=== PATIENT | male | born 1965 | race Caucasian/White ===

== ENCOUNTER 2024-10-15 16:16 | Inpatient (IN) | payer MEDICAID, OTHER ==
[~2024-10-15] VITALS: Ht 172.7 cm; Wt 76.2 kg
[2024-10-15 17:17] LABS: BASOPHILS % (AUTO) 0.3 % (0.0-2.0); EOSINOPHILS % (AUTO) 0.3 % (0.0-7.0); HEMATOCRIT 42.9 % (36.7-47.1); HEMOGLOBIN 14.1 g/dL (12.5-16.3); LYMPHOCYTES # (AUTO) 1.6 K/uL (0.8-4.8); LYMPHOCYTES % (AUTO) 19.6 % (20.5-51.5); MEAN CORPUSCULAR HEMOGLOBIN 31.4 uug (23.8-33.4); MEAN CORPUSCULAR HGB CONC 33 g/dL (32.5-36.3); MEAN CORPUSCULAR VOLUME 95.3 fL (73.0-96.2); MONOCYTES # (AUTO) 0.7 K/uL (0.1-1.30); MONOCYTES % (AUTO) 7.9 % (0.0-11.0); NEUTROPHILS % (AUTO) 71.9 % (38.5-71.5); PLATELET COUNT (AUTO) 263 K/uL (152-348); RED CELL DISTRIBUTION WIDTH 14.5 % (12.1-16.2); WHITE BLOOD COUNT (AUTO) 8.3 K/uL (3.6-10.2)
[2024-10-15 17:19] LABS: DIFFERENTIAL COMMENT 1
[2024-10-15 17:19] LABS: *BILIRUBIN,URIN NEGATIVE (NEGATIVE); *BLOOD, URINE NEGATIVE (NEGATIVE); *CLARITY,URINE CLEAR (CLEAR); *COLOR,URINE YELLOW (YELLOW); *KETONES,URINE 2+ (NEGATIVE); *PROTEIN,URINE NEGATIVE (NEGATIVE); *UROBILINOGEN,URINE 0.2 E.U./dl (NORMAL); LEUKOCYTE ESTERASE ,URINE NEGATIVE (NEGATIVE); NITRITE, URINE NEGATIVE (NEGATIVE); UGLUCOSE NEGATIVE (NEGATIVE)
[2024-10-15 17:20] LABS: RBC,URINE 0-3 /HPF (0-3); WBC,URINE 0-3 /HPF (0-3)
[2024-10-15 17:27] LABS: *AMPHETAMINE, URINE NEGATIVE (NEGATIVE); *BARBITURATE, URINE NEGATIVE (NEGATIVE); *BENZODIAZEPINE, URINE NEGATIVE (NEGATIVE); *CANNABINOID, URINE NEGATIVE (NEGATIVE); *COCCAINE, URINE NEGATIVE (NEGATIVE); *OPIATE, URINE NEGATIVE (NEGATIVE); *PHENCYCLIDINE SCREEN,URINE NEGATIVE (NEGATIVE); FENTANYL, URINE NEGATIVE (NEGATIVE)
[2024-10-15 17:29] LABS: ETHANOL < 3 MG/DL (0-10)
[2024-10-15 17:48] LABS: ALANINE AMINOTRANSFERASE 20 U/L (16-63); ALBUMIN 4.1 g/dL (3.4-5.0); ALKALINE PHOSPHATASE 58 U/L (50-136); ASPARTATE AMINOTRANSFERASE 11 U/L (15-37); BILIRUBIN,DIRECT 0.2 mg/dL (0.0-0.2); BILIRUBIN,TOTAL 0.8 mg/dL (0.2-1.0); CALCIUM 9.1 mg/dL (8.5-10.1); CARBON DIOXIDE 29 mmol/L (21-32); CREATININE 1.1 mg/dL (0.6-1.3); GLUCOSE 105 mg/dL (74-106); TOTAL PROTEIN, SERUM 6.9 g/dL (6.4-8.2); UREA NITROGEN, BLOOD 14 mg/dL (7-18)
[2024-10-15 18:19] LABS: CHLORIDE 103 mmol/L (98-107); POTASSIUM 4.2 mmol/L (3.5-5.1); SODIUM SERUM 142 mmol/L (136-145)
[2024-10-15] MEDS ORDERED: QUET200T31 PO (18:21)
[2024-10-15] MEDS ORDERED: DIVA-76 PO (18:21)
[2024-10-15] MEDS ORDERED: LAMO150T6 PO (18:21)
[2024-10-15] MEDS ORDERED: ARIP30TA21 PO (18:21)
[2024-10-15] MEDS ORDERED: MAG HYDROX/AL HYDROX/SIMETH 30 ML LIQUID UDC PO PRN (21:30)
[2024-10-15] MEDS ORDERED: ACETAMINOPHEN 325 MG TABLET PO PRN (21:30)
[2024-10-15] MEDS ORDERED: MAGNESIUM HYDROXIDE 30 ML LIQUID UDC PO PRN (21:30)
[2024-10-15] MEDS: BLOOD SUGAR DIAGNOSTIC 1 EACH STRIP VI ONE (22:25)
[2024-10-15 23:00] VITALS: BP 146/78; TEMP 98.2; O2SAT 96
[2024-10-16] MEDS: LORAZEPAM 1 MG TABLET PO PRN (00:01)
[2024-10-16] MEDS: ZOLPIDEM 5 MG TABLET PO PRN (02:59)
[2024-10-16 08:18] VITALS: BP 148/81; TEMP 98.5; O2SAT 98
[2024-10-16] MEDS: DIVALPROEX 250 MG TABLET.DR PO SCH (12:35)
[2024-10-16] MEDS: ESCITALOPRAM OXALATE 10 MG TABLET PO SCH (12:36)
[2024-10-16 16:46] VITALS: BP 135/86; TEMP 97.8; O2SAT 98
[2024-10-16 20:07] VITALS: BP 114/72; TEMP 97.9; O2SAT 97
[2024-10-16] MEDS: QUETIAPINE FUMARATE 25 MG TABLET PO SCH (20:39)
[2024-10-17 08:15] VITALS: BP 117/75; TEMP 98; O2SAT 98
[2024-10-17 15:16] VITALS: BP 120/75; TEMP 98; O2SAT 99
[2024-10-17 19:58] VITALS: BP 128/80; TEMP 98.2; O2SAT 95
[2024-10-17] MEDS: LORAZEPAM 1 MG TABLET PO PRN (21:05)
[2024-10-17] MEDS: ARIPIPRAZOLE 10 MG TABLET PO SCH (21:06)
[2024-10-18 07:47] VITALS: BP 111/71; TEMP 98; O2SAT 99
[2024-10-18 08:49] LABS: THYROID STIMULATING HORMONE 1.581 mIU/mL (0.358-3.740)
[2024-10-18 15:47] VITALS: BP 123/66; TEMP 98; O2SAT 99
[2024-10-18 20:00] VITALS: BP 131/67; TEMP 97.8; O2SAT 96
[2024-10-19 07:56] VITALS: BP 116/64; TEMP 98.2; O2SAT 98
[2024-10-19 16:01] VITALS: BP 105/60; TEMP 98; O2SAT 99
[2024-10-19 19:53] VITALS: BP 131/75; TEMP 98.6; O2SAT 98
[2024-10-20 07:54] VITALS: BP 135/69; TEMP 98; O2SAT 98
[2024-10-20 15:40] VITALS: BP 117/67; TEMP 98; O2SAT 99
[2024-10-20 21:06] VITALS: BP 109/64; TEMP 98.1; O2SAT 96
[2024-10-21] MEDS: ZOLPIDEM 5 MG TABLET PO PRN (02:18)
[2024-10-21 08:16] VITALS: BP 127/88; TEMP 98.1; O2SAT 98
[2024-10-21 16:10] VITALS: BP 140/77; TEMP 98.5; O2SAT 98
[2024-10-21 21:26] VITALS: BP 116/70; TEMP 98.5; O2SAT 100
[2024-10-22 08:14] VITALS: BP 124/55; TEMP 97.9; O2SAT 100
[2024-10-22] MEDS: DIVALPROEX 500 MG TABLET.DR PO SCH (09:06)
[2024-10-22 16:16] VITALS: BP 129/67; TEMP 98; O2SAT 99
[2024-10-22 19:51] VITALS: BP 143/68; TEMP 98; O2SAT 96
[2024-10-23 08:12] VITALS: BP 111/62; TEMP 98; O2SAT 98
[2024-10-23 16:17] VITALS: BP 122/73; TEMP 98; O2SAT 98
[2024-10-23 19:40] VITALS: BP 114/69; TEMP 98.1; O2SAT 97
[2024-10-23] MEDS: MIRTAZAPINE 15 MG TABLET PO SCH (20:08)
[2024-10-24 07:58] VITALS: BP 122/73; TEMP 98; O2SAT 98
[2024-10-24 16:01] VITALS: BP 126/72; TEMP 98; O2SAT 98
== END 2024-10-24 16:15 | disposition home or self-care (01) | DRG 885 ==
LOC: ER 19:21 → GPS 20:00
PROVIDERS: ADMIT Psychiatry & Neurology Psychiatry; ATTEND Internal Medicine
DX: F20.9 Schizophrenia, unspecified (principal); I67.82 Cerebral ischemia; I67.89 Other cerebrovascular disease; F03.94 Unspecified dementia, unspecified severity, with anxiety; F03.911 Unspecified dementia, unspecified severity, with agitation; F31.5 Bipolar disorder, current episode depressed, severe, with psychotic features; E66.9 Obesity, unspecified; Z68.25 Body mass index [BMI] 25.0-25.9, adult; R82.4 Acetonuria; Z91.199 Patient's noncompliance with other medical treatment and regimen due to unspecified reason; Z79.899 Other long term (current) drug therapy; F68.8 Other specified disorders of adult personality and behavior; I44.4 Left anterior fascicular block
CPT/HCPCS: 36415; 70450; 80164; 83921; 84443; 85025; 93005; A4606; A4663; G0480; J3490

== ENCOUNTER 2025-01-15 12:45 | Inpatient (IN) | payer OTHER ==
[~2025-01-15] VITALS: Ht 170.2 cm; Wt 89.8 kg
[2025-01-15] MEDS ORDERED: OLANZAPINE 10 MG VIAL IM ONE (13:08)
[2025-01-15] MEDS ORDERED: LORAZEPAM 2 MG/1 ML VIAL ONE (13:08)
[2025-01-15 13:12] LABS: PLATELET COUNT (AUTO) 284 K/uL (152-348); RED BLOOD CELL COUNT(AUTO) 4.95 MIL/uL (4.06-5.63); RED CELL DISTRIBUTION WIDTH 14.7 % (12.1-16.2); WHITE BLOOD COUNT (AUTO) 8.9 K/uL (3.6-10.2)
[2025-01-15] MEDS: LORAZEPAM 2 MG/1 ML VIAL IM ONE (13:17)
[2025-01-15] MEDS: OLANZAPINE 10 MG VIAL IM ONE (13:18)
[2025-01-15 13:20] LABS: CREATININE 1.3 mg/dL (0.6-1.3); SODIUM SERUM 145 mmol/L (136-145); UREA NITROGEN, BLOOD 17 mg/dL (7-18)
[2025-01-15 13:23] LABS: ETHANOL < 3 MG/DL (0-10)
[2025-01-15 13:25] LABS: ASPARTATE AMINOTRANSFERASE 15 U/L (15-37); TOTAL PROTEIN, SERUM 7.5 g/dL (6.4-8.2)
[2025-01-15] MEDS ORDERED: ARIPIPRAZOLE 5 MG TABLET ONE (14:04)
[2025-01-15] MEDS: ARIPIPRAZOLE 5 MG TABLET PO ONE (14:05)
[2025-01-15] MEDS ORDERED: ACETAMINOPHEN 500 MG TABLET ONE (18:07)
[2025-01-15] MEDS ORDERED: ARIP20TA20 PO (18:16)
[2025-01-15] MEDS ORDERED: DIVA500T2 PO (18:16)
[2025-01-15] MEDS ORDERED: MIRT7.5T10 (18:16)
[2025-01-15] MEDS: ACETAMINOPHEN 500 MG TABLET PO ONE (18:18)
[2025-01-15 18:37] LABS: *AMPHETAMINE, URINE NEGATIVE (NEGATIVE); *BARBITURATE, URINE NEGATIVE (NEGATIVE); *BENZODIAZEPINE, URINE NEGATIVE (NEGATIVE); *CANNABINOID, URINE NEGATIVE (NEGATIVE); *COCCAINE, URINE NEGATIVE (NEGATIVE); *OPIATE, URINE NEGATIVE (NEGATIVE); *PHENCYCLIDINE SCREEN,URINE NEGATIVE (NEGATIVE); FENTANYL, URINE NEGATIVE (NEGATIVE)
[2025-01-15 18:44] LABS: *BILIRUBIN,URIN NEGATIVE (NEGATIVE); *BLOOD, URINE NEGATIVE (NEGATIVE); *CLARITY,URINE CLEAR (CLEAR); *COLOR,URINE YELLOW (YELLOW); *KETONES,URINE 1+ (NEGATIVE); *PROTEIN,URINE NEGATIVE (NEGATIVE); *UROBILINOGEN,URINE 1.0 E.U./dl (NORMAL); LEUKOCYTE ESTERASE ,URINE NEGATIVE (NEGATIVE); NITRITE, URINE NEGATIVE (NEGATIVE); UGLUCOSE NEGATIVE (NEGATIVE)
[2025-01-15] MEDS ORDERED: ZOLPIDEM 5 MG TABLET PO PRN ×2 (21:15)
[2025-01-15] MEDS ORDERED: MAGNESIUM HYDROXIDE 30 ML LIQUID UDC PO PRN (21:15)
[2025-01-15] MEDS ORDERED: MAG HYDROX/AL HYDROX/SIMETH 30 ML LIQUID UDC PO PRN (21:15)
[2025-01-15] MEDS ORDERED: LORAZEPAM 1 MG TABLET PO PRN ×2 (21:15)
[2025-01-16] MEDS: ACETAMINOPHEN 325 MG TABLET PO PRN (06:17)
[2025-01-16 08:42] VITALS: BP 131/71; TEMP 98.1; O2SAT 93
[2025-01-16] MEDS: DIVALPROEX ER 500 MG TAB.SR.24H PO SCH (11:05)
[2025-01-16 15:52] VITALS: BP 130/83; TEMP 98.1; O2SAT 97
[2025-01-16 19:59] VITALS: BP 130/70; TEMP 97.4; O2SAT 97
[2025-01-16] MEDS: ARIPIPRAZOLE 10 MG TABLET PO SCH (20:50)
[2025-01-16] MEDS: ATORVASTATIN 20 MG TABLET PO SCH (20:51)
[2025-01-16] MEDS: MIRTAZAPINE 15 MG TABLET PO SCH (20:51)
[2025-01-17 08:12] VITALS: BP 116/62; TEMP 98; O2SAT 98
[2025-01-17 15:26] VITALS: BP 107/63; TEMP 98; O2SAT 98
[2025-01-17 20:00] VITALS: BP 122/70; TEMP 97.4; O2SAT 96
[2025-01-18 07:56] VITALS: BP 107/61; TEMP 98; O2SAT 94
[2025-01-18] MEDS ORDERED: ATOR20TA PO (10:25)
== END 2025-01-18 15:30 | disposition home or self-care (01) | DRG 885 ==
LOC: ER 12:45 → GPS 21:01
PROVIDERS: ADMIT Psychiatry & Neurology Psychiatry; ATTEND Nurse Practitioner Acute Care
DX: F31.5 Bipolar disorder, current episode depressed, severe, with psychotic features (principal); D68.59 Other primary thrombophilia; F03.93 Unspecified dementia, unspecified severity, with mood disturbance; F03.92 Unspecified dementia, unspecified severity, with psychotic disturbance; T43.026A Underdosing of tetracyclic antidepressants, initial encounter; T43.596A Underdosing of other antipsychotics and neuroleptics, initial encounter; Z91.148 Patient's other noncompliance with medication regimen for other reason; Y92.039 Unspecified place in apartment as the place of occurrence of the external cause; E86.0 Dehydration; Z78.1 Physical restraint status; E66.9 Obesity, unspecified; Z68.31 Body mass index [BMI] 31.0-31.9, adult; E78.5 Hyperlipidemia, unspecified; R79.89 Other specified abnormal findings of blood chemistry
CPT/HCPCS: 36415; 85025; A4606; A4663; A9150; G0480; J2060; J2358